=== PATIENT | female | born 1945 | race Caucasian/White ===

== ENCOUNTER 2020-04-12 09:06 | Inpatient (IN) ==
[2020-04-12] MEDS ORDERED: Levofloxacin 500 MG IVPREMIX 500 MG/100 ML BAG IV ONE (09:43)
[2020-04-12] MEDS ORDERED: NS 0.9% 1000 ml BAG 1,000 ML IV.FLUID IV ONE (09:43)
[2020-04-12 10:16] LABS: ABS Lymphocytes 0.8 10^3/ul (1.0-4.8); ABS Monocytes 0.2 10^3/ul (0-0.8); ABS Neutrophils 11.8 10^3/ul (1.5-7.7); Hematocrit 50 % (35-47); Hemoglobin 17.3 g/dL (12.0-16.0); Lymphocyte % 6.5 %; Mean Corpuscular HGB Conc 35 g/dL (31-36); Mean Corpuscular Hemoglobin 36 pg (27-31); Mean Corpuscular Volume 103 fL (80-97); Mean Platelet Volume 10.7 fL (7.4-10.4); Nucleated Red Blood Cells % 0.1; Platelet Count 174 10^3/uL (150-450); Red Blood Count 4.83 10^6 /uL (3.70-4.87); Red Cell Distribution Width 14 % (10-15); White Blood Count 12.9 10^3/uL (3.5-10.8)
[2020-04-12 10:27] LABS: Activated Partial Thrombo Time 37.5 seconds (26.0-38.0); INR 1.18 (0.82-1.09)
[2020-04-12 10:32] LABS: Albumin 3.6 g/dL (3.2-5.2); Albumin/Globulin Ratio 0.8 (1-3); BUN/Creatinine Ratio 17.9 (8-20); C Reactive Protein 262.75 mg/L (<8.01); Calcium 9.3 mg/dL (8.6-10.3); EGFR African American 46.5 (>60); EGFR Non-African American 38.5 (>60); Globulin 4.3 g/dL (2-4); Potassium 3.4 mmol/L (3.5-5.0); Total Bilirubin 0.4 mg/dL (0.2-1.0); Total Protein 7.9 g/dL (6.4-8.9)
[2020-04-12 10:45] LABS: Troponin I 5.17 ng/mL (<0.03)
[2020-04-12 15:43] LABS: Troponin I 3.43 ng/mL (<0.03)
[2020-04-12] MEDS ORDERED: Vancomycin 1,000 MG in NS 0.9% 250 ml 250 ML IVPB ONE (17:53)
[2020-04-12] MEDS ORDERED: Vancomycin per Pharmacy 1 EA NOTE FOLLOW UP SCH (18:00)
[2020-04-12] MEDS ORDERED: Furosemide 20 mg/2 ml IV VIAL ONE (18:02)
[2020-04-12] MEDS ORDERED: Furosemide 20 mg/2 ml IV VIAL IV ONE (18:02)
[2020-04-12] MEDS ORDERED: Furosemide 20 mg/2 ml IV VIAL IV SLOW PU ONE (18:17)
[2020-04-12] MEDS ORDERED: Metoprolol Tartrate 5 mg VIAL 5 ml VIAL (1 mg/ml) IV ONE (18:17)
[2020-04-12] MEDS ORDERED: Ciprofloxacin 400mg IVPREMIX 400 MG/200 ML BAG IVPB SCH (19:00)
[2020-04-12 19:17] LABS: ABS Lymphocytes 1.4 10^3/ul (1.0-4.8); ABS Monocytes 0.5 10^3/ul (0-0.8); ABS Neutrophils 9.5 10^3/ul (1.5-7.7); Hematocrit 47 % (35-47); Hemoglobin 15.8 g/dL (12.0-16.0); Lymphocyte % 12.3 %; Mean Corpuscular HGB Conc 34 g/dL (31-36); Mean Corpuscular Hemoglobin 35 pg (27-31); Mean Corpuscular Volume 104 fL (80-97); Mean Platelet Volume 10.6 fL (7.4-10.4); Nucleated Red Blood Cells % 0.1; Platelet Count 175 10^3/uL (150-450); Red Blood Count 4.47 10^6 /uL (3.70-4.87); Red Cell Distribution Width 14 % (10-15); White Blood Count 11.4 10^3/uL (3.5-10.8)
[2020-04-12 19:23] LABS: INR 1.29 (0.82-1.09)
[2020-04-12 19:37] LABS: Albumin 3.3 g/dL (3.2-5.2); Albumin/Globulin Ratio 0.9 (1-3); BUN/Creatinine Ratio 19.1 (8-20); Calcium 8.4 mg/dL (8.6-10.3); EGFR African American 43.9 (>60); EGFR Non-African American 36.3 (>60); Globulin 3.5 g/dL (2-4); Magnesium 1.7 mg/dL (1.9-2.7); Phosphorus 4.5 mg/dL (2.5-5.0); Potassium 4.2 mmol/L (3.5-5.0); Total Bilirubin 0.4 mg/dL (0.2-1.0); Total Protein 6.8 g/dL (6.4-8.9)
[2020-04-12] MEDS: Azithromycin 500 mg/250 ml NS 500 MG/250 ML BAG IVPB SCH (20:45)
[2020-04-12] MEDS: Pantoprazole VIAL 40 MG VIAL IV SCH (20:45)
[2020-04-12] MEDS: Aztreonam 1 GM in NS 0.9% 50 ML 50 ML IV SCH (20:49)
[2020-04-12] MEDS ORDERED: Dexamethasone IV 4 MG/ML VIAL 1 ml VIAL IV SLOW PU SCH (22:00)
[2020-04-12] MEDS ORDERED: Remdesivir 100 mg Vial 200 MG in NS 0.9% 250 ml 210 ML IV ONE (22:00)
[2020-04-12 22:28] LABS: Troponin I 5.78 ng/mL (<0.03)
[2020-04-12] MEDS ORDERED: Magnesium Sulfate 2 gm BAG 2 GM/50 ML BAG IVPB ONE (22:34)
[2020-04-12] MEDS ORDERED: Enoxaparin 60 MG/0.6 ML SYR SUBCUT SCH (23:00)
[2020-04-13 02:16] LABS: Troponin I 5.34 ng/mL (<0.03)
[2020-04-13 04:14] LABS: ABS Monocytes 0.2 10^3/ul (0-0.8); ABS Neutrophils 7.2 10^3/ul (1.5-7.7); Hematocrit 41 % (35-47); Hemoglobin 13.9 g/dL (12.0-16.0); Lymphocyte % 11.7 %; Mean Corpuscular HGB Conc 34 g/dL (31-36); Mean Corpuscular Hemoglobin 35 pg (27-31); Mean Corpuscular Volume 104 fL (80-97); Mean Platelet Volume 10.1 fL (7.4-10.4); Platelet Count 129 10^3/uL (150-450); Red Blood Count 3.92 10^6 /uL (3.70-4.87); Red Cell Distribution Width 14 % (10-15); White Blood Count 8.5 10^3/uL (3.5-10.8)
[2020-04-13 04:21] LABS: Albumin 2.8 g/dL (3.2-5.2); Albumin/Globulin Ratio 0.9 (1-3); BUN/Creatinine Ratio 21.1 (8-20); EGFR African American 40.2 (>60); EGFR Non-African American 33.2 (>60); Globulin 3.2 g/dL (2-4); Magnesium 2.4 mg/dL (1.9-2.7); Phosphorus 3.5 mg/dL (2.5-5.0); Potassium 4.1 mmol/L (3.5-5.0); Total Bilirubin 0.3 mg/dL (0.2-1.0)
[2020-04-13] MEDS: Aztreonam 1 GM in NS 0.9% 50 ML 50 ML IV SCH ×3 (05:03→22:31)
[2020-04-13] MEDS: Vancomycin 750 MG in NS 0.9% 250 ML IVPB SCH ×2 (05:03→18:03)
[2020-04-13 08:30] LABS: Troponin I 2.65 ng/mL (<0.03)
[2020-04-13] MEDS: Enoxaparin 30 MG/0.3 ML SYR SUBCUT SCH (09:13)
[2020-04-13] MEDS: CMCS:Rosuvastatin 20 mg TAB (NF) PO SCH (09:13)
[2020-04-13] MEDS: Pantoprazole VIAL 40 MG VIAL IV SCH (09:14)
[2020-04-13] MEDS: Aspirin EC 81 mg TAB.EC (enteric coated) PO SCH (09:14)
[2020-04-13] MEDS ORDERED: Bumetanide IV 0.25 MG/ML 4 ml VIAL (1 mg) SLOW PUSH ONE (09:24)
[2020-04-13 10:05] LABS: Glucose 122 mg/dL (70-100)
[2020-04-13 10:34] LABS: TSH Ultra Thyroid Stim Horm 1.86 mcIU/mL (0.34-5.60)
[2020-04-13 10:38] LABS: Free T4 1.23 ng/dL (0.61-1.12)
[2020-04-13] MEDS ORDERED: Furosemide 40 mg/4 ml IV VIAL IV ONE (11:16)
[2020-04-13] MEDS ORDERED: Digoxin IV 0.5 MG/2 ML AMP (0.25 MG/ML) IV SLOW PU ONE (11:38)
[2020-04-13] MEDS: methylPREDNISolone SOD 40 mg/ml 1 ml VIAL IV SCH ×2 (12:47→19:58)
[2020-04-13] MEDS ORDERED: TOCILIZUMAB IVPB ONE (13:00)
[2020-04-13] MEDS ORDERED: NS 0.9% IVPB ONE (13:00)
[2020-04-13 18:51] LABS: Urine Appearance Cloudy; Urine Bilirubin Negative (Negative); Urine Blood 3+ (Negative); Urine Color Yellow; Urine Glucose Negative (Negative); Urine Ketones Negative (Negative); Urine Nitrite Negative (Negative); Urine Protein Negative (Negative); Urine Specific Gravity 1.011 (1.010-1.030); Urine Urobilinogen Negative (Negative)
[2020-04-13 18:53] LABS: Urine Bacteria Absent (Absent); Urine Red Blood Cell 3+(>10/hpf) (Absent); Urine Squamous Epithelial Cell Present (Absent); Urine White Blood Cell 1+(6-10/hpf) (Absent)
[2020-04-13] MEDS: Azithromycin 500 mg/250 ml NS 500 MG/250 ML BAG IVPB SCH (19:58)
[2020-04-13] MEDS: Remdesivir 100 mg Vial 100 MG in NS 0.9% 250 ml 230 ML IV SCH ×2 (19:59→21:09)
[2020-04-13 20:57] LABS: BUN/Creatinine Ratio 26.4 (8-20); Calcium 8.3 mg/dL (8.6-10.3); EGFR African American 37.1 (>60); EGFR Non-African American 30.7 (>60); Magnesium 2.2 mg/dL (1.9-2.7); Phosphorus 3.7 mg/dL (2.5-5.0)
[2020-04-14] MEDS: methylPREDNISolone SOD 40 mg/ml 1 ml VIAL IV SCH ×3 (03:09→22:37)
[2020-04-14 03:21] LABS: Hematocrit 38 % (35-47); Mean Corpuscular HGB Conc 34 g/dL (31-36); Mean Corpuscular Hemoglobin 35 pg (27-31); Mean Corpuscular Volume 104 fL (80-97); Platelet Count 158 10^3/uL (150-450); Red Blood Count 3.68 10^6 /uL (3.70-4.87); Red Cell Distribution Width 14 % (10-15); White Blood Count 8.5 10^3/uL (3.5-10.8)
[2020-04-14 03:35] LABS: Calcium 7.9 mg/dL (8.6-10.3); Potassium 3.8 mmol/L (3.5-5.0)
[2020-04-14 03:40] LABS: BUN/Creatinine Ratio 29.7 (8-20); EGFR African American 39.3 (>60); EGFR Non-African American 32.5 (>60)
[2020-04-14] MEDS: Aztreonam 1 GM in NS 0.9% 50 ML 50 ML IV SCH ×3 (05:17→21:31)
[2020-04-14] MEDS: Vancomycin 750 MG in NS 0.9% 250 ML IVPB SCH (05:17)
[2020-04-14] MEDS ORDERED: Vancomycin Trough Check NOTE FOLLOW UP ONE (05:30)
[2020-04-14 07:22] LABS: Magnesium 2.2 mg/dL (1.9-2.7)
[2020-04-14 07:28] LABS: Phosphorus 4.2 mg/dL (2.5-5.0)
[2020-04-14] MEDS: CMCS:Rosuvastatin 20 mg TAB (NF) PO SCH (07:38)
[2020-04-14] MEDS: Enoxaparin 30 MG/0.3 ML SYR SUBCUT SCH (07:39)
[2020-04-14] MEDS: Aspirin EC 81 mg TAB.EC (enteric coated) PO SCH (07:39)
[2020-04-14] MEDS: Pantoprazole VIAL 40 MG VIAL IV SCH (07:39)
[2020-04-14] MEDS: Bumetanide IV 0.25 MG/ML 4 ml VIAL (1 mg) SLOW PUSH SCH ×2 (09:05→22:37)
[2020-04-14 10:12] LABS: % Iron Saturation 26 % (15-55); Iron 47 ug/dL (50-212); Total Iron Binding Capacity 183 mcg/dL (250-450); Transferrin 131 mg/dL (203-362); Unsaturated Iron Binding < 168 ug/dL
[2020-04-14 12:22] LABS: Influenza A Molecular Negative (Negative); Influenza B Molecular Negative (Negative)
[2020-04-14 13:11] LABS: Ferritin > 1500.0 ng/mL (11-307)
[2020-04-14] MEDS: Azithromycin 500 mg/250 ml NS 500 MG/250 ML BAG IVPB SCH (21:28)
[2020-04-14] MEDS ORDERED: Metoclopramide 5 MG/ML VIAL (10 mg) IV PRN (21:52)
[2020-04-14] MEDS ORDERED: Calcium Carb (TUMS) 500 mg CHEW TAB PO PRN (21:52)
[2020-04-14] MEDS: Remdesivir 100 mg Vial 100 MG in NS 0.9% 250 ml 230 ML IV SCH (21:57)
[2020-04-15] MEDS: methylPREDNISolone SOD 40 mg/ml 1 ml VIAL IV SCH ×3 (04:50→20:54)
[2020-04-15 05:33] LABS: ABS Lymphocytes 0.8 10^3/ul (1.0-4.8); ABS Monocytes 0.8 10^3/ul (0-0.8); ABS Neutrophils 9.4 10^3/ul (1.5-7.7); Hematocrit 43 % (35-47); Hemoglobin 14.5 g/dL (12.0-16.0); Lymphocyte % 7.7 %; Mean Corpuscular HGB Conc 34 g/dL (31-36); Mean Corpuscular Hemoglobin 35 pg (27-31); Mean Corpuscular Volume 103 fL (80-97); Mean Platelet Volume 10.3 fL (7.4-10.4); Platelet Count 219 10^3/uL (150-450); Red Blood Count 4.19 10^6 /uL (3.70-4.87); Red Cell Distribution Width 14 % (10-15)
[2020-04-15 05:51] LABS: BUN/Creatinine Ratio 36.3 (8-20); Calcium 8.2 mg/dL (8.6-10.3); EGFR African American 42.1 (>60); EGFR Non-African American 34.8 (>60); Potassium 3.5 mmol/L (3.5-5.0)
[2020-04-15] MEDS: Aztreonam 1 GM in NS 0.9% 50 ML 50 ML IV SCH ×3 (06:27→21:39)
[2020-04-15] MEDS: Pantoprazole VIAL 40 MG VIAL IV SCH (09:09)
[2020-04-15] MEDS: CMCS:Rosuvastatin 20 mg TAB (NF) PO SCH (09:10)
[2020-04-15] MEDS: Bumetanide IV 0.25 MG/ML 4 ml VIAL (1 mg) SLOW PUSH SCH ×2 (09:10→20:57)
[2020-04-15] MEDS: Aspirin EC 81 mg TAB.EC (enteric coated) PO SCH (09:10)
[2020-04-15] MEDS: Enoxaparin 30 MG/0.3 ML SYR SUBCUT SCH (09:10)
[2020-04-15] MEDS ORDERED: Potassium Chloride LIQUID 20 MEQ/15 ML LIQUID PO ONE ×2 (09:14→09:15)
[2020-04-15] MEDS: Azithromycin 500 mg/250 ml NS 500 MG/250 ML BAG IVPB SCH (22:43)
[2020-04-16] MEDS: methylPREDNISolone SOD 40 mg/ml 1 ml VIAL IV SCH ×2 (05:21→13:15)
[2020-04-16] MEDS: Aztreonam 1 GM in NS 0.9% 50 ML 50 ML IV SCH ×3 (05:41→23:30)
[2020-04-16 06:25] LABS: BUN/Creatinine Ratio 40.7 (8-20); Calcium 8.6 mg/dL (8.6-10.3); EGFR African American 46.1 (>60); EGFR Non-African American 38.1 (>60); Magnesium 1.9 mg/dL (1.9-2.7)
[2020-04-16] MEDS: Pantoprazole VIAL 40 MG VIAL IV SCH (09:44)
[2020-04-16] MEDS: CMCS:Rosuvastatin 20 mg TAB (NF) PO SCH (09:44)
[2020-04-16] MEDS: Aspirin EC 81 mg TAB.EC (enteric coated) PO SCH (09:44)
[2020-04-16] MEDS: Bumetanide IV 0.25 MG/ML 4 ml VIAL (1 mg) SLOW PUSH SCH (09:45)
[2020-04-16] MEDS: Enoxaparin 30 MG/0.3 ML SYR SUBCUT SCH ×2 (09:45→20:33)
[2020-04-16] MEDS ORDERED: Dextrose 50% Syringe 50 ml 25 GM/50 ML SYRINGE IV PUSH PRN (12:55)
[2020-04-16] MEDS ORDERED: Potassium Chlor 20 meq TAB.ER PO ONE (14:29)
[2020-04-16] MEDS: Insulin GLARGINE 100 un/ml 10 ml VIAL SUBCUT SCH (20:34)
[2020-04-16] MEDS: Azithromycin 500 mg/250 ml NS 500 MG/250 ML BAG IVPB SCH (20:44)
[2020-04-17] MEDS: Aztreonam 1 GM in NS 0.9% 50 ML 50 ML IV SCH (05:48)
[2020-04-17] MEDS ORDERED: Bumetanide IV 0.25 MG/ML 4 ml VIAL (1 mg) SLOW PUSH SCH (09:00)
[2020-04-17 09:33] LABS: Hematocrit 44 % (35-47); Mean Corpuscular HGB Conc 35 g/dL (31-36); Mean Corpuscular Hemoglobin 35 pg (27-31); Mean Corpuscular Volume 101 fL (80-97); Mean Platelet Volume 10.3 fL (7.4-10.4); Platelet Count 231 10^3/uL (150-450); Red Cell Distribution Width 14 % (10-15); White Blood Count 15.6 10^3/uL (3.5-10.8)
[2020-04-17 09:56] LABS: Albumin 3.3 g/dL (3.2-5.2); BUN/Creatinine Ratio 40.3 (8-20); Calcium 9.1 mg/dL (8.6-10.3); EGFR African American 44.6 (>60); EGFR Non-African American 36.9 (>60); Globulin 3.3 g/dL (2-4); Magnesium 2.1 mg/dL (1.9-2.7); Potassium 3.5 mmol/L (3.5-5.0); Total Bilirubin 0.6 mg/dL (0.2-1.0); Total Protein 6.6 g/dL (6.4-8.9)
[2020-04-17] MEDS: Enoxaparin 30 MG/0.3 ML SYR SUBCUT SCH ×2 (09:59→19:50)
[2020-04-17] MEDS: Aspirin EC 81 mg TAB.EC (enteric coated) PO SCH (10:00)
[2020-04-17] MEDS: CMCS:Rosuvastatin 20 mg TAB (NF) PO SCH (10:00)
[2020-04-17 10:08] LABS: ABS Lymphocytes 1.5 10^3/ul (1.0-4.8); ABS Monocytes 1.7 10^3/ul (0-0.8); ABS Neutrophils 12.4 10^3/ul (1.5-7.7); Lymphocyte % 9.9 %
[2020-04-17] MEDS: Insulin GLARGINE 100 un/ml 10 ml VIAL SUBCUT SCH (19:51)
[2020-04-18] MEDS: Aspirin EC 81 mg TAB.EC (enteric coated) PO SCH (10:05)
[2020-04-18] MEDS: Enoxaparin 30 MG/0.3 ML SYR SUBCUT SCH (10:05)
[2020-04-18] MEDS: CMCS:Rosuvastatin 20 mg TAB (NF) PO SCH (13:01)
[2020-04-18] MEDS: Insulin GLARGINE 100 un/ml 10 ml VIAL SUBCUT SCH (19:50)
[2020-04-19 06:42] LABS: ABS Lymphocytes 1.5 10^3/ul (1.0-4.8); ABS Monocytes 1.4 10^3/ul (0-0.8); ABS Neutrophils 9.4 10^3/ul (1.5-7.7); Hematocrit 41 % (35-47); Hemoglobin 14.3 g/dL (12.0-16.0); Lymphocyte % 12.5 %; Mean Corpuscular HGB Conc 35 g/dL (31-36); Mean Corpuscular Hemoglobin 35 pg (27-31); Mean Corpuscular Volume 101 fL (80-97); Mean Platelet Volume 10.8 fL (7.4-10.4); Platelet Count 201 10^3/uL (150-450); Red Blood Count 4.07 10^6 /uL (3.70-4.87); Red Cell Distribution Width 13 % (10-15); White Blood Count 12.3 10^3/uL (3.5-10.8)
[2020-04-19 07:05] LABS: ALT 62 U/L (7-52); AST 29 U/L (13-39); Alkaline Phosphatase 75 U/L (34-104); Anion Gap 9 mmol/L (2-11); BUN/Creatinine Ratio 39.6 (8-20); Blood Urea Nitrogen 38 mg/dL (6-24); CO2 Carbon Dioxide 29 mmol/L (22-32); Chloride 102 mmol/L (101-111); EGFR African American 68.4 (>60); EGFR Non-African American 56.5 (>60); Glucose 150 mg/dL (70-100); Magnesium 2.3 mg/dL (1.9-2.7); Potassium 3.7 mmol/L (3.5-5.0); Sodium 140 mmol/L (135-145)
[2020-04-19] MEDS ORDERED: Enoxaparin 30 MG/0.3 ML SYR SUBCUT SCH (09:00)
[2020-04-19] MEDS ORDERED: Enoxaparin 40 MG/0.4 ML SYR SUBCUT SCH (10:00)
[2020-04-19 10:32] VITALS: BP 130/54
[2020-04-19] MEDS: Aspirin EC 81 mg TAB.EC (enteric coated) PO SCH (10:33)
[2020-04-19] MEDS: CMCS:Rosuvastatin 20 mg TAB (NF) PO SCH (10:33)
[2020-04-19] MEDS ORDERED: Senna TAB 8.6 mg TAB PO PRN (10:55)
[2020-04-19] MEDS ORDERED: Polyethylene Glycol 3350 17 GM PACKET PO PRN (10:55)
[2020-04-19 11:21] LABS: Folate 8.78 ng/mL (>3.99)
[2020-04-19 11:22] LABS: Vitamin B12 > 1450 pg/mL (180-914)
== END 2020-04-19 16:10 | disposition home or self-care (01) | DRG 871 ==
LOC: ED 09:06 → ICU 19:29 → MED 04-15 17:04
PROVIDERS: ADMIT Internal Medicine; ATTEND Internal Medicine

== ENCOUNTER 2020-07-16 06:07 | Inpatient (IN) ==
[2020-07-16 07:47] LABS: ABS Eosinophils 0.1 10^3/ul (0-0.6); ABS Lymphocytes 1.8 10^3/ul (1.0-4.8); ABS Monocytes 0.6 10^3/ul (0-0.8); ABS Neutrophils 7.4 10^3/ul (1.5-7.7); Eosinophil % 1.3 %; Hematocrit 43 % (35-47); Hemoglobin 14.3 g/dL (12.0-16.0); Lymphocyte % 18.4 %; Mean Corpuscular HGB Conc 34 g/dL (31-36); Mean Corpuscular Hemoglobin 36 pg (27-31); Mean Corpuscular Volume 107 fL (80-97); Mean Platelet Volume 9.8 fL (7.4-10.4); Platelet Count 267 10^3/uL (150-450); Red Cell Distribution Width 14 % (10-15)
[2020-07-16 07:49] LABS: Activated Partial Thrombo Time 30.5 seconds (26.0-38.0); INR 1.08 (0.82-1.09)
[2020-07-16 07:57] LABS: ALT 24 U/L (7-52); AST 24 U/L (13-39); Albumin 4.5 g/dL (3.2-5.2); Albumin/Globulin Ratio 1.3 (1-3); Alkaline Phosphatase 60 U/L (34-104); Anion Gap 8 mmol/L (2-11); Blood Urea Nitrogen 26 mg/dL (6-24); C Reactive Protein 3.93 mg/L (<8.01); CO2 Carbon Dioxide 23 mmol/L (22-32); Calcium 10.5 mg/dL (8.6-10.3); Chloride 104 mmol/L (101-111); EGFR African American 56.5 (>60); EGFR Non-African American 46.7 (>60); Globulin 3.4 g/dL (2-4); Glucose 122 mg/dL (70-100); Potassium 4.2 mmol/L (3.5-5.0); Sodium 135 mmol/L (135-145); Total Protein 7.9 g/dL (6.4-8.9)
[2020-07-16 08:12] LABS: Troponin I 0.03 ng/mL (<0.03)
[2020-07-16] MEDS ORDERED: Furosemide 40 mg/4 ml IV VIAL IV ONE (08:19)
[2020-07-16] MEDS ORDERED: Iodixanol (CONTRAST) 320 MG/ML 100 ML SDV IV ONE (08:35)
[2020-07-16] MEDS ORDERED: Dextrose 50% Syringe 50 ml 25 GM/50 ML SYRINGE IV PUSH PRN (13:02)
[2020-07-16 14:06] LABS: Vitamin B12 1190 pg/mL (180-914)
[2020-07-16] MEDS: Enoxaparin 40 MG/0.4 ML SYR SUBCUT SCH (15:45)
[2020-07-16] MEDS: Furosemide 40 mg/4 ml IV VIAL IV SLOW PU SCH (15:46)
[2020-07-16 15:55] LABS: Troponin I 0.05 ng/mL (<0.03)
[2020-07-16 19:54] LABS: Troponin I 0.05 ng/mL (<0.03)
[2020-07-17 06:03] LABS: Calcium 10.1 mg/dL (8.6-10.3); EGFR African American 48.1 (>60); EGFR Non-African American 39.7 (>60); Potassium 3.8 mmol/L (3.5-5.0)
[2020-07-17] MEDS: Cholecalciferol (VIT D3) 1,000 unit TAB PO SCH (08:42)
[2020-07-17] MEDS: Aspirin EC 81 mg TAB.EC (enteric coated) PO SCH (08:42)
[2020-07-17] MEDS: Furosemide 40 mg/4 ml IV VIAL IV SLOW PU SCH (08:43)
[2020-07-17] MEDS ORDERED: Perflutren Lipid Microsphere 3 ML VIAL ONE (12:09)
[2020-07-17] MEDS: Enoxaparin 40 MG/0.4 ML SYR SUBCUT SCH (13:10)
[2020-07-18] MEDS ORDERED: NS 0.9% 1000 ml BAG 1,000 ML IV SCH (02:00)
[2020-07-18 05:48] LABS: ABS Eosinophils 0.4 10^3/ul (0-0.6); ABS Monocytes 0.8 10^3/ul (0-0.8); ABS Neutrophils 5.5 10^3/ul (1.5-7.7); Eosinophil % 4.2 %; Hematocrit 40 % (35-47); Hemoglobin 13.7 g/dL (12.0-16.0); Lymphocyte % 22.8 %; Mean Corpuscular HGB Conc 34 g/dL (31-36); Mean Corpuscular Hemoglobin 36 pg (27-31); Mean Corpuscular Volume 105 fL (80-97); Platelet Count 240 10^3/uL (150-450); Red Blood Count 3.81 10^6 /uL (3.70-4.87); Red Cell Distribution Width 14 % (10-15); White Blood Count 8.7 10^3/uL (3.5-10.8)
[2020-07-18 05:54] LABS: INR 1.13 (0.82-1.09)
[2020-07-18 06:02] LABS: Calcium 9.4 mg/dL (8.6-10.3); EGFR African American 54.3 (>60); EGFR Non-African American 44.9 (>60); Potassium 3.6 mmol/L (3.5-5.0)
[2020-07-18] MEDS ORDERED: Heparin 1,000 UNIT/ML 10 ml (10,000 UNITS) CATHLAB/DIALYSIS ONE (07:33)
[2020-07-18] MEDS ORDERED: VERAPAMIL 2.5 MG/ML 2 ML VIAL ** 5 mg/2 ml ONE (07:33)
[2020-07-18] MEDS ORDERED: fentaNYL 100 mcg/2 ml 50 MCG/ML VIAL ONE (07:33)
[2020-07-18] MEDS ORDERED: Midazolam 5 mg/5 ml VIAL 1 mg/ml 5 ml VIAL (5 mg) ONE (07:33)
[2020-07-18] MEDS ORDERED: Heparin 2 UNITS/ML 1000 mls 2,000 ML IV ONE (07:34)
[2020-07-18] MEDS ORDERED: Iodixanol 320 (CONTRAST) 100 ML SDV ONE (07:34)
[2020-07-18] MEDS ORDERED: Lidocaine 1% VIAL 10 MG/ML VIAL ONE (07:34)
[2020-07-18] MEDS ORDERED: nitroGLYCERIN DRIP 25,000 MCG/250 ML BTL ONE (07:34)
[2020-07-18] MEDS: Aspirin EC 81 mg TAB.EC (enteric coated) PO SCH (07:53)
[2020-07-18] MEDS ORDERED: diPHENhydraMINE 25 mg TAB PO PRN (08:00)
[2020-07-18] MEDS: Cholecalciferol (VIT D3) 1,000 unit TAB PO SCH (12:05)
[2020-07-18] MEDS: Enoxaparin 40 MG/0.4 ML SYR SUBCUT SCH (12:06)
[2020-07-19 05:24] LABS: Calcium 9.3 mg/dL (8.6-10.3); EGFR African American 62.9 (>60); Potassium 3.6 mmol/L (3.5-5.0)
[2020-07-19] MEDS ORDERED: Potassium Chlor 20 meq TAB.ER PO ONE (08:39)
[2020-07-19] MEDS: Cholecalciferol (VIT D3) 1,000 unit TAB PO SCH (10:48)
[2020-07-19] MEDS: Aspirin EC 81 mg TAB.EC (enteric coated) PO SCH (10:48)
[2020-07-19] MEDS: Enoxaparin 40 MG/0.4 ML SYR SUBCUT SCH (13:19)
[2020-07-20 05:43] LABS: Calcium 9.5 mg/dL (8.6-10.3); EGFR African American 74.4 (>60); EGFR Non-African American 61.5 (>60); Potassium 4.3 mmol/L (3.5-5.0)
[2020-07-20 06:06] LABS: ABS Basophils 0.1 10^3/ul (0-0.2); ABS Eosinophils 0.4 10^3/ul (0-0.6); ABS Lymphocytes 1.9 10^3/ul (1.0-4.8); ABS Monocytes 0.9 10^3/ul (0-0.8); ABS Neutrophils 6.1 10^3/ul (1.5-7.7); Eosinophil % 4.2 %; Hematocrit 43 % (35-47); Hemoglobin 14.6 g/dL (12.0-16.0); Lymphocyte % 20.5 %; Mean Corpuscular HGB Conc 34 g/dL (31-36); Mean Corpuscular Hemoglobin 36 pg (27-31); Mean Platelet Volume 9.9 fL (7.4-10.4); Nucleated Red Blood Cells % 0.1; Platelet Count 243 10^3/uL (150-450); Red Blood Count 4.03 10^6 /uL (3.70-4.87); Red Cell Distribution Width 14 % (10-15); White Blood Count 9.3 10^3/uL (3.5-10.8)
[2020-07-20 07:07] LABS: Mean Corpuscular Volume 106 fL (80-97)
[2020-07-20] MEDS: Aspirin EC 81 mg TAB.EC (enteric coated) PO SCH (08:56)
[2020-07-20] MEDS: Cholecalciferol (VIT D3) 1,000 unit TAB PO SCH (08:56)
[2020-07-20 09:15] LABS: POC SO2 61 %
[2020-07-20 09:15] LABS: POC SO2 89 %
[2020-07-20 09:15] LABS: POC SO2 58 %
[2020-07-20] MEDS: Enoxaparin 40 MG/0.4 ML SYR SUBCUT SCH (12:16)
[2020-07-20 14:29] VITALS: BP 115/59
== END 2020-07-20 14:31 | disposition home or self-care (01) | DRG 287 ==
LOC: ED 06:07 → MEDTELE 06:07
PROVIDERS: ADMIT Internal Medicine; ATTEND Internal Medicine